=== PATIENT | female | born 1980 | race Caucasian/White ===

== ENCOUNTER 2016-06-28 09:50 | Emergency (ER) | payer OTHER, MEDICAID ==
[~2016-06-28] VITALS: Ht 160 cm; Wt 59.0 kg
--- NOTE | 2016-06-28 09:58 | Emergency Room Report ---
History of Present Illness General Chief Complaint: Behavioral Complaint Source: Patient, EMS Present Illness HPI Patient was brought in by paramedics from nearby restaurant patient was Having rambling of speech appeared to be acutely psychotic Upon arrival the patient states that she feels fine However she does have evidence of pressure to speech Reports that she has a history of manic/depression Does not take any medications Denies any headache or visual changes denies any chest pressure shortness of breath Denies any suicidal or homicidal thoughts Allergies: Coded Allergies: No Known Allergies (Unverified , 06/28/16) Patient History Past Medical History: see triage record Pertinent Family History: none Reviewed Nursing Documentation: PMH: Agreed, PSxH: Agreed Nursing Documentation-PMH Past Medical History: No History, Except For History Of Psychiatric Problem: Yes Review of Systems All Other Systems: negative except mentioned in HPI Physical Exam Vital Signs Date Time Temp Pulse Resp B/P Pulse Ox O2 Delivery O2 Flow Rate FiO2 06/28/16 09:46 98.1 92 16 128/68 100 Room Air Sp02 EP Interpretation: reviewed, normal General Appearance: no apparent distress - However the patient does have some pressured speech, along with flight of thought Head: normocephalic, atraumatic Eyes: bilateral eye EOMI, bilateral eye PERRL ENT: hearing grossly normal, normal pharynx, TMs + canals normal, uvula midline Neck: full range of motion, supple, no meningismus, no bony tend Respiratory: lungs clear, normal breath sounds, no rhonchi, no respiratory distress, no retraction, no accessory muscle use Cardiovascular #1: normal peripheral pulses, regular rate, rhythm, no edema, no gallop, no JVD, no murmur Gastrointestinal: normal bowel sounds, non tender, soft, no mass, no organomegaly, non-distended, no guarding, no hernia, no pulsatile mass, no rebound Genitourinary: no CVA tenderness Musculoskeletal: normal inspection Neurologic: oriented x3, responsive, clutch inspector III-XII nml as tested, motor strength/ tone normal, sensory intact Psychiatric: other - Patient has evidence of pressured speech rambling of thought process, Skin: other - Appears disheveled and poorly kept Lymphatic: normal inspection, no adenopathy Medical Decision Making Diagnostic Impression: Primary Impression: Elevated transaminase level Additional Impressions: Psychosis Drug abuse ER Course Given the patient's history and presentation Multiple differentials are considered patient requiring extensive blood work And intervention At this time patient was provided with Haldol and Ativan which has improved her acute symptoms patient's drug screen is also positive At this time the patient's AST and ALT are also elevated I suspect these are chronic and the patient does not have any acute symptoms of hepatitis However the patient is not able to be medically cleared At this time requiring further medical intervention, along with psychiatric evaluation [facility] has been contacted and will be transferring for further inpatient care, , Labs Test 06/28/16 10:30 06/28/16 11:05 Urine HCG, Qualitative Negative Urine Opiates Screen Negative (NEGATIVE) Urine Barbiturates Screen Negative (NEGATIVE) Phencyclidine (PCP) Screen Negative (NEGATIVE) Urine Amphetamines Screen Positive (NEGATIVE) Urine Benzodiazepines Screen Negative (NEGATIVE) Urine Cocaine Screen Positive (NEGATIVE) Urine Marijuana (THC) Screen Positive (NEGATIVE) White Blood Count 5.2 K/UL (4.8-10.8) Red Blood Count 4.26 M/UL (4.20-5.40) Hemoglobin 12.3 G/DL (12.0-16.0) Hematocrit 37.3 % (37.0-47.0) Mean Corpuscular Volume 88 FL (80-99) Mean Corpuscular Hemoglobin 29.0 PG (27.0-31.0) Mean Corpuscular Hemoglobin Concent 33.1 G/DL (32.0-36.0) Red Cell Distribution Width 12.3 % (11.6-14.8) Platelet Count 337 K/UL (150-450) Mean Platelet Volume 6.9 FL (6.5-10.1) Neutrophils (%) (Auto) 57.7 % (45.0-75.0) Lymphocytes (%) (Auto) 32.0 % (20.0-45.0) Monocytes (%) (Auto) 8.8 % (1.0-10.0) Eosinophils (%) (Auto) 0.6 % (0.0-3.0) Basophils (%) (Auto) 1.0 % (0.0-2.0) Sodium Level 143 mEQ/L (135-145) Potassium Level 3.3 mEQ/L (3.4-4.9) Chloride Level 102 mEQ/L (98-107) Carbon Dioxide Level 26 mEQ/L (20-30) Anion Gap 15 (5-15) Blood Urea Nitrogen 13 mg/dL (7-23) Creatinine 0.5 mg/dL (0.5-0.9) Estimat Glomerular Filtration Rate > 60 mL/min (>60) Glucose Level 99 mg/dL (74-106) Calcium Level 9.3 mg/dL (8.6-10.2) Total Bilirubin 0.9 mg/dL (0.0-1.2) Aspartate Amino Transf (AST/SGOT) 101 U/L (5-40) Alanine Aminotransferase (ALT/SGPT) 294 U/L (3-33) Alkaline Phosphatase 170 U/L (35-104) Total Protein 7.7 g/dL (6.6-8.7) Albumin 4.1 g/dL (3.5-5.2) Globulin 3.6 g/dL Albumin/Globulin Ratio 1.1 (1.0-2.7) Salicylates Level < 1 mg/dL (10-30) Acetaminophen Level < 10 ug/mL (10-30) Serum Alcohol < 10 mg/dL Last Vital Signs Date Time Temp Pulse Resp B/P Pulse Ox O2 Delivery O2 Flow Rate FiO2 06/28/16 09:46 98.1 92 16 128/68 100 Room Air Status: improved [facility] Condition: Improved TONI SHARP D.O. June 28, 2016 09:58
[2016-06-28] MEDS ORDERED: LORazepam Inj 2mg/ml 1ml IV ONE (10:00)
[2016-06-28] MEDS ORDERED: Haloperidol 5mg/ml Inj IM ONE (10:00)
[2016-06-28 10:54] VITALS: BP 128/68
[2016-06-28 11:21] LABS: EOSINOPHILS % (AUTO) 0.6 % (0.0-3.0); MEAN CORPUSCULAR HGB CONC 33.1 G/DL (32.0-36.0); MEAN CORPUSCULAR VOLUME 88 FL (80-99); MEAN PLATELET VOLUME 6.9 FL (6.5-10.1); MONOCYTES % (AUTO) 8.8 % (1.0-10.0); NEUTROPHILS % (AUTO) 57.7 % (45.0-75.0); PLATELET COUNT 337 K/UL (150-450); RED BLOOD COUNT 4.26 M/UL (4.20-5.40); RED CELL DISTRIBUTION WIDTH 12.3 % (11.6-14.8); WHITE BLOOD COUNT 5.2 K/UL (4.8-10.8)
[2016-06-28 11:44] LABS: ACETAMINOPHEN < 10 ug/mL (10-30); ALANINE AMINOTRANSFERASE 294 U/L (3-33); ALBUMIN/GLOBULIN RATIO 1.1 (1.0-2.7); ALCOHOL < 10 mg/dL; ANION GAP 15 (5-15); ASPARTATE AMINO TRANSFERASE 101 U/L (5-40); CALCIUM 9.3 mg/dL (8.6-10.2); CARBON DIOXIDE 26 mEQ/L (20-30); CHLORIDE 102 mEQ/L (98-107); CREATININE 0.5 mg/dL (0.5-0.9); GLOMERULAR FILTRATION RATE > 60 mL/min (>60); HEMOLYSIS 6; POTASSIUM 3.3 mEQ/L (3.4-4.9); SODIUM 143 mEQ/L (135-145); TOTAL PROTEIN 7.7 g/dL (6.6-8.7)
[2016-06-28 12:24] VITALS: BP 120/70
[2016-06-28 14:52] VITALS: BP 120/80
== END 2016-06-28 14:55 | disposition short-term general hospital (02) ==
LOC: EDBD 09:50 → EMR 10:45
DX: R74.0 Nonspecific elevation of levels of transaminase and lactic acid dehydrogenase [LDH] (principal); F29 Unspecified psychosis not due to a substance or known physiological condition; F19.10 Other psychoactive substance abuse, uncomplicated
CPT/HCPCS: 36415; 80053; 80300; 81025; 85025; 96372; 96374; 99285; G0480; J1630; 80329